=== PATIENT | male | born 1935 | race American Indian/Alaskan Native ===

== ENCOUNTER 2016-07-16 19:32 | Emergency (ER) | payer OTHER ==
[2016-07-16] MEDS ORDERED: PSEUDOEPHEDRINE 30 MG TABLET PO STA (21:39)
[2016-07-16] MEDS ORDERED: PSEUDOEPHEDRINE 30 MG TABLET PO ONE (21:49)
== END 2016-07-16 22:31 | disposition home or self-care (01) ==
DX: J34.89 Other specified disorders of nose and nasal sinuses (principal); R09.81 Nasal congestion
CPT/HCPCS: 36415; 71020; 80053; 81003; 83605; 83690; 84443; 84484; 85025; 87040; 93005; 99283; 99284; A9270

== ENCOUNTER 2016-07-23 21:37 | Emergency (ER) | payer OTHER ==
[2016-07-23] MEDS ORDERED: LIDOCAINE 2% URO-JET 5 ML SYRINGE UR STA (21:58)
[2016-07-23] MEDS ORDERED: LIDOCAINE 2% URO-JET 5 ML SYRINGE UR ONE (21:59)
== END 2016-07-23 23:22 | disposition home or self-care (01) ==
DX: R33.9 Retention of urine, unspecified (principal)

== ENCOUNTER 2016-07-25 17:32 | Observation (INO) | payer OTHER ==
[2016-07-25] MEDS ORDERED: SODIUM CHLORIDE 0.9% 500 ML IV ONE (18:30)
[2016-07-25] MEDS ORDERED: TEMAZEPAM 15 MG CAPSULE PO PRN (19:52)
[2016-07-25] MEDS ORDERED: MORPHINE 2 MG/ML SYRINGE IVP PRN (19:52)
[2016-07-25] MEDS ORDERED: SODIUM CHLORIDE FLUSH 0.9% 10 ML SYRINGE IVP PRN (19:52)
[2016-07-25] MEDS ORDERED: ONDANSETRON 4 MG/2 ML VIAL IVP PRN (19:52)
[2016-07-25] MEDS ORDERED: NITROGLYCERIN SL 0.4 MG TABLET SL PRN (19:54)
[2016-07-25] MEDS ORDERED: METOPROLOL TARTRATE 25 MG TABLET PO SCH (21:00)
[2016-07-25] MEDS: SODIUM CHLORIDE 0.9% 1,000 ML IV SCH (21:49)
[2016-07-25] MEDS: SODIUM CHLORIDE FLUSH 0.9% 10 ML SYRINGE IVP SCH (21:49)
[2016-07-25] MEDS ORDERED: guaiFENesin/CODEINE 5 ML UDC PO PRN (22:28)
[2016-07-25] MEDS: IOPAMIDOL-300 100 ML VIAL IVP ONE ×2 (22:58→22:59)
[2016-07-25] MEDS ORDERED: HYALURONIDASE HUMAN RECOMB 150 UNIT/ML VIAL SUBQ SCH (22:59)
[2016-07-26] MEDS ORDERED: cefTRIAXone 2 GM in SODIUM CHLORIDE 0.9% MINIBAG 100 ML IV SCH (02:00)
[2016-07-26] MEDS: SODIUM CHLORIDE FLUSH 0.9% 10 ML SYRINGE IVP SCH ×3 (06:52→20:59)
[2016-07-26] MEDS: cefTRIAXone 2 GM in SODIUM CHLORIDE 0.9% MINIBAG 100 ML IV SCH (06:59)
[2016-07-26] MEDS: TAMSULOSIN 0.4 MG CAPSULE PO SCH (08:50)
[2016-07-26] MEDS: hydroCHLOROthiazide 12.5 MG CAPSULE PO SCH (08:50)
[2016-07-26] MEDS: FLUTICASONE NASAL SPRAY NAS SCH (08:51)
[2016-07-26] MEDS: ASPIRIN EC 81 MG TABLET PO SCH (08:51)
[2016-07-26] MEDS: SODIUM CHLORIDE 0.9% 1,000 ML IV SCH (08:53)
[2016-07-26] MEDS ORDERED: POLYETHYLENE GLYCOL 3350 17 GM PACKET PO SCH (09:00)
[2016-07-26] MEDS ORDERED: LISINOPRIL 5 MG TABLET PO SCH (09:00)
[2016-07-26] MEDS ORDERED: LISINOPRIL 20 MG TABLET PO SCH (11:00)
[2016-07-26] MEDS ORDERED: TAMSULOSIN 0.4 MG CAPSULE PO SCH (11:00)
[2016-07-26] MEDS: ACETAMINOPHEN 325 MG TABLET PO PRN ×2 (11:24→18:34)
[2016-07-26] MEDS ORDERED: OXYMETAZOLINE NASAL SPRAY NAS PRN (19:41)
[2016-07-26] MEDS ORDERED: OXYMETAZOLINE NASAL SPRAY NAS ONE (20:37)
[2016-07-27] MEDS: SODIUM CHLORIDE FLUSH 0.9% 10 ML SYRINGE IVP SCH (06:59)
[2016-07-27] MEDS: ACETAMINOPHEN 325 MG TABLET PO PRN (06:59)
[2016-07-27] MEDS: cefTRIAXone 2 GM in SODIUM CHLORIDE 0.9% MINIBAG 100 ML IV SCH (07:00)
[2016-07-27] MEDS ORDERED: LISINOPRIL 5 MG TABLET PO SCH (09:00)
[2016-07-27] MEDS: TAMSULOSIN 0.4 MG CAPSULE PO SCH (09:55)
[2016-07-27] MEDS: hydroCHLOROthiazide 12.5 MG CAPSULE PO SCH (09:55)
[2016-07-27] MEDS: ASPIRIN EC 81 MG TABLET PO SCH (09:56)
[2016-07-27] MEDS: FLUTICASONE NASAL SPRAY NAS SCH (09:56)
== END 2016-07-27 11:02 | disposition home or self-care (01) ==
DX: R07.89 Other chest pain (principal); R59.0 Localized enlarged lymph nodes; R63.4 Abnormal weight loss; J32.9 Chronic sinusitis, unspecified; J06.9 Acute upper respiratory infection, unspecified; R55 Syncope and collapse; R33.0 Drug induced retention of urine; T45.0X5A Adverse effect of antiallergic and antiemetic drugs, initial encounter; T80.818A Extravasation of other vesicant agent, initial encounter; M79.602 Pain in left arm; Y84.8 Other medical procedures as the cause of abnormal reaction of the patient, or of later complication, without mention of misadventure at the time of the procedure; Y92.239 Unspecified place in hospital as the place of occurrence of the external cause; I10 Essential (primary) hypertension; H61.23 Impacted cerumen, bilateral; Z96.0 Presence of urogenital implants; Z68.1 Body mass index [BMI] 19.9 or less, adult; Z77.120 Contact with and (suspected) exposure to mold (toxic)
CPT/HCPCS: 36415; 70486; 71010; 71275; 80048; 80053; 80061; 82550; 82553; 83615; 83690; 83735; 83880; 84100; 84153; 84484; 85025; 85379; 85651; 86141; 93005; 93010; 93306; 93880; 96361; 96365; 96366; 96372; 96375; 99218; 99284; A9270; Q9967

== ENCOUNTER 2018-01-13 14:20 | Outpatient (CLI) | payer OTHER ==
[2018-01-13 17:30] LABS: BASOPHILS % (AUTO) 0.9 %; EOSINOPHILS # (AUTO) 0.2 10^3/uL (0.0-0.7); EOSINOPHILS % (AUTO) 3.4 %; HGB - HEMOGLOBIN 14.5 g/dL (14.0-18.0); LYMPHOCYTES # (AUTO) 1.1 10^3/uL (1.5-3.5); LYMPHOCYTES % (AUTO) 24.6 %; MEAN CORPUSCULAR HEMOGLOBIN 30.2 pg (27.0-31.0); MEAN CORPUSCULAR HGB CONC 33.1 g/dL (32.0-36.0); MEAN CORPUSCULAR VOLUME 91.4 fL (80.0-94.0); MEAN PLATELET VOLUME 8.7 fL (7.4-11.4); MONOCYTES # (AUTO) 0.6 10^3/uL (0.0-1.0); MONOCYTES % (AUTO) 12.4 %; NEUTROPHILS # (AUTO) 2.7 10^3/uL (1.5-6.6); NEUTROPHILS % (AUTO) 58.7 %; PLT - PLATELET COUNT 262 10^3/uL (130-450); RED BLOOD COUNT 4.79 10^6/uL (4.70-6.10); RED CELL DISTRIBUTION WIDTH 13.5 % (12.0-15.0); WHITE BLOOD COUNT 4.6 x10^3/uL (4.8-10.8)
[2018-01-13 17:34] LABS: ALBUMIN 4.3 g/dL (3.2-5.5); ALBUMIN/GLOBULIN RATIO 1.3 (1.0-2.2); BILIRUBIN,TOTAL 0.3 mg/dL (0.2-1.0); CALCIUM 9.9 mg/dL (8.5-10.3); CREATININE 0.8 mg/dL (0.6-1.2); TOTAL PROTEIN 7.6 g/dL (6.7-8.2)
== END 2018-01-13 14:21 | disposition home or self-care (01) ==
LOC: LAB.R 14:20
PROVIDERS: ATTEND Internal Medicine
DX: R63.0 Anorexia (principal)
CPT/HCPCS: 80053; 84443; 85025